=== PATIENT | female | born 1960 | race Caucasian/White ===

== ENCOUNTER → 2023-09-23 11:14 | Outpatient (CLI) | payer OTHER, MEDICAID, SELFPAY ==
[2023-09-23 12:00] LABS: Add Manual Diff / Slide Review NO; Basophils Absolute Auto 100 /uL (0-100); Basophils Percent Auto 0.8 % (0-2); Eosinophils Absolute Auto 200 /uL (0-450); Hematocrit 40.8 % (36-46); Hemoglobin 14.1 g/dL (12.0-16.0); Lymphocytes Absolute Auto 2000 /uL (1100-4500); Lymphocytes Percent Auto 28.6 % (25-40); Mean Corpuscular HGB Conc 34.6 % (30-36); Mean Corpuscular Hemoglobin 31.1 PG (26-34); Mean Corpuscular Volume 89.8 fL (80-100); Monocytes Absolute Auto 600 /uL (0-900); Monocytes Percent Auto 8.1 % (3-14); Neutrophils Absolute Auto 4200 /uL (1500-7000); Neutrophils Percent Auto 59.5 % (50-75); Platelet Count 327 X10^3/uL (150-400); Red Blood Cell Count 4.54 X10^6/uL (4.0-5.2); Red Cell Distribution Width 13.2 % (11.6-14.8)
[2023-09-23 12:24] LABS: Alanine Aminotransferase 13 IU/L (<35); Albumin 4.3 g/dL (3.5-5.0); Albumin Globulin Ratio 1.5 (1.0-2.8); Alkaline Phosphatase 65 U/L (38-126); Aspartate Aminotransferase 20 IU/L (14-36); BUN Creatinine Ratio 20.5 (6-22); Bilirubin Total 0.6 mg/dL (0.2-1.3); Blood Urea Nitrogen 18 mg/dL (7-17); Calcium 9.4 mg/dL (8.4-10.2); Carbon Dioxide 26 mmol/L (22-32); Chloride 108 mmol/L (98-107); Cholesterol 249 mg/dL (140-199); Estimated Glomerular Filt Rate > 60 mL/min (>60); Globulin 2.8 g/dL (1.7-4.1); Glucose 110 mg/dL (80-110); HDL Cholesterol 49 mg/dL (40-60); HEMOLYSIS < 15 (0-50); LDL Cholesterol Calculated 160 mg/dL (<100); Potassium 4.2 mmol/L (3.4-5.1); Sodium 139 mmol/L (137-145); Total Protein 7.1 g/dL (6.3-8.2); Triglycerides 200 mg/dL (35-150)
[2023-09-23 12:53] LABS: TSH w/ Reflex to FT4 1.54 uIU/mL (0.47-4.68)
[2023-09-23 12:54] LABS: Ferritin 34 ng/mL (11-264)
[2023-09-23 13:26] LABS: Folate 11.7 ng/mL (2.76-20.0); Vitamin B12 481 pg/mL (239-931)
[2023-09-23 14:09] LABS: Percent Iron Saturation 34 % (15-50)
== END ==
PROVIDERS: PCP Nurse Practitioner Family; Referring Provider Nurse Practitioner Family; Visit Provider Nurse Practitioner Family
DX: D64.9 Anemia, unspecified (principal); F41.8 Other specified anxiety disorders; Z13.1 Encounter for screening for diabetes mellitus; Z13.220 Encounter for screening for lipoid disorders
CPT/HCPCS: 36415; 80053; 80061; 82607; 82728; 82746; 84443; 85025

== ENCOUNTER → 2023-10-26 13:18 | Outpatient (CLI) | payer OTHER, MEDICAID, SELFPAY ==
--- NOTE | 2023-10-26 13:20 | DI.CT.S_ITS ---
PROCEDURE: CT LUNG LOW DOSE SCREENING INDICATIONS: BASELINE SCREENING/LUNG CANCER SCREENING TECHNIQUE: Noncontrast 2.0-2.5 mm thick sections acquired from the pulmonary apices to the posterior costophrenic angles. 7 mm thick axial MIP, and 5 mm coronal and sagittal reformats were then acquired. For radiation dose reduction, the following was used: automated exposure control, adjustment of mA and/or kV according to patient size. COMPARISON: None. FINDINGS: Image quality: Diagnostic. Lower Neck: No enlarged lymph nodes. Thyroid: No thyroid nodules which require sonographic follow up, per consensus guidelines. Axillae: No enlarged lymph nodes. Chest Wall: Unremarkable. Bones: Visualized osseous structures appear intact without acute fracture or focal destructive lesion. No acute compression fractures of the imaged spine. Lungs and Pleura: No pneumothorax or pleural effusions. No acute consolidation identified. There is a 4 mm posterior right lower lobe nodule seen on image 152/series 3. No other suspicious pulmonary nodules identified. Heart: Heart size is normal. No pericardial effusion. Coronary atherosclerotic vascular calcifications are noted. Thoracic Vessels: The aorta and pulmonary arteries demonstrate normal size. Mediastinum and Marissa: No enlarged lymph nodes. Esophagus: No wall thickening. No hiatal hernia. Upper Abdomen: Visualized upper abdomen solid organs and bowel loops appear normal. IMPRESSION: There is a 4 mm right lower lobe pulmonary nodule. LUNG-RADS 2; continued annual screening, if eligible. Clinically Significant Non-pulmonary Findings: Atherosclerosis. Dictated by: Remberto Mason M.D. on 10/26/2023 at 16:50 Approved by: Remberto Mason M.D. on 10/26/2023 at 16:55
--- NOTE | 2023-10-26 13:20 | DI.MG.S_ITS ---
BILATERAL DIGITAL SCREENING MAMMOGRAM 3D/2D WITH CAD: 10/26/2023 CLINICAL: Baseline exam. Routine screening. No prior exams were available for comparison. There are scattered areas of fibroglandular density in both breasts (category b / 25%-50% glandular tissue). Current study was also evaluated with a Computer Aided Detection (CAD) system. No significant masses, calcifications, or other findings are seen in either breast. IMPRESSION: NEGATIVE There is no mammographic evidence of malignancy. A 1 year screening mammogram is recommended. Based on the Tyrer Cuzick model (a risk assessment model) the patient's lifetime risk is 5.3% and her 10 year risk is 2.3%. According to the ACR, ACS, and NCCN guidelines, an annual breast MRI exam along with mammogram is recommended if the patient's lifetime risk is 20% or greater. This exam was interpreted at Station ID: [id number]. NOTE: For mammograms, a report in lay terms will be sent to the patient. Approximately 15% of breast malignancies will not be visualized mammographically. In the management of a palpable breast mass, a negative mammogram must not discourage biopsy of a clinically suspicious lesion. Electronically Signed By: Victorino rivero/tyron:10/26/2023 15:57:23 letter sent: Normal Exam ACR BI-RADS Category 1: Negative 3341F
== END ==
PROVIDERS: PCP Nurse Practitioner Family; Referring Provider Nurse Practitioner Family; Visit Provider Nurse Practitioner Family
DX: Z12.31 Encounter for screening mammogram for malignant neoplasm of breast (principal); F17.200 Nicotine dependence, unspecified, uncomplicated; R91.1 Solitary pulmonary nodule
CPT/HCPCS: 71271; 77063; 77067

== ENCOUNTER → 2023-11-07 11:20 | Outpatient (CLI) | payer OTHER, MEDICAID, SELFPAY | LOC: RESP 11:21 | PROVIDERS: PCP Nurse Practitioner Family; Referring Provider Nurse Practitioner Family; Visit Provider Nurse Practitioner Family | DX: J44.9 Chronic obstructive pulmonary disease, unspecified (principal); F17.210 Nicotine dependence, cigarettes, uncomplicated | CPT/HCPCS: 94060; 94726; 94729 ==

== ENCOUNTER 2024-08-12 10:27 | Emergency (ER) | payer OTHER, SELFPAY ==
[2024-08-12 10:42] VITALS: BP 170/96; PULSE 79; RESP 16; TEMP 36.6; O2SAT 95; BMI 23.8
--- NOTE | 2024-08-12 11:45 | ED.HA ---
HPI - Headache General Chief Complaint: Headache Stated Complaint: Migraine, Swollen Eye, V/D, Weakness Time Seen by Provider: 08/12/24 11:35 Mode of arrival: Ambulatory History of Present Illness HPI Narrative: 64-year-old female history of COPD here with bitemporal headache that started a few days ago, woke up yesterday with swollen left eye and painful left eye with clear drainage, reports of neck stiffness and nausea vomiting and diarrhea that started yesterday. No known fever. Denies any severe headache or visual disturbance, speech disturbance. No recent infectious symptoms such as sinusitis or cough/congestion that is new. No known history of glaucoma Related Data Home Medications ?Medication ?Instructions ?Recorded ?Confirmed fluoxetine 20 mg tablet 20 mg PO DAILY 06/20/24 06/20/24 Previous Rx's ?Medication ?Instructions ?Recorded loratadine 10 mg tablet (Claritin) 10 mg PO DAILY #30 tabs 06/20/24 Allergies Allergy/AdvReac Type Severity Reaction Status Date / Time codeine AdvReac Mild Bradycardia Verified 08/12/24 10:42 Penicillins AdvReac Mild Vomiting Verified 08/12/24 10:42 Review of Systems Review of Systems Narrative: Pertinent ROS obtained and negative except as stated in HPI Patient History Social History Smoking Status: Current every day smoker Smoking Status: Current every day smoker Exam Initial Vital Signs Initial Vital Signs: Vital Signs Temperature 97.9 F 08/12/24 10:42 Pulse Rate 79 08/12/24 10:42 Respiratory Rate 16 08/12/24 10:42 Blood Pressure 170/96 H 08/12/24 10:42 Pulse Oximetry 95 08/12/24 10:42 Oxygen Delivery Method Room Air 08/12/24 10:42 Constitutional: 64-year-old female resting in the bed, no acute distress Head: NCAT. There is mild swelling of the left periorbital tissue. No induration. No drainage from the eye. Pupil equal round reactive to light Cardiovascular: RRR, no murmur or rub Pulmonary: Faint expiratory wheeze, no respiratory distress Abdominal: soft, non-tender Extremities: No LE edema Skin: warm and dry, no diaphoresis Neurological: Alert and oriented x3. No nuchal rigidity. Extraocular movements intact. Follows commands. Normal EOM. No visual loss. No facial palsy. Equal 5/5 strength UE and LEs. No limb ataxia. Normal sensation. Normal speech. No dysarthria. No truncal ataxia. Normal coordination. No nystagmus noted. Course Orders Ordered: Discontinued Medications Diphenhydramine HCl (Diphenhydramine 50 Mg/Ml Vial) 50 mg IV NOW ONE Stop: 08/12/24 11:51 Last Admin: 08/12/24 12:09 Dose: 50 mg Documented By: SLOANE Fluorescein Sodium (Fluorescein 1 Mg Strip) 1 mg EYE-LEFT NOW ONE Stop: 08/12/24 11:51 Last Admin: 08/12/24 12:11 Dose: 1 mg Documented By: SLOANE Sodium Chloride (Normal Saline 0.9%) 1,000 mls @ 1,000 mls/hr IV BOLUS ONE Stop: 08/12/24 13:04 Last Infusion: 08/12/24 12:49 Dose: Infused Documented By: Admin: 08/12/24 12:10 Dose: 1,000 mls/hr Documented By: SLOANE Ketorolac Tromethamine (Ketorolac 30 Mg/Ml Vial) 15 mg IV NOW ONE Stop: 08/12/24 11:51 Last Admin: 08/12/24 12:09 Dose: 15 mg Documented By: SLOANE Prochlorperazine (Prochlorperazine 10 Mg/2 Ml Vial) 10 mg IV NOW ONE Stop: 08/12/24 11:51 Last Admin: 08/12/24 12:09 Dose: 10 mg Documented By: SLOANE Proparacaine HCl (Proparacaine 0.5% Ophth Lindsay) 1 drops EYE-LEFT NOW ONE Stop: 08/12/24 11:51 Last Admin: 08/12/24 12:11 Dose: 1 drop Documented By: SLOANE Vital Signs Vital signs: Vital Signs - 8 hr 08/12/24 10:42 Temperature 97.9 F Pulse Rate 79 Respiratory Rate 16 Blood Pressure 170/96 H Pulse Oximetry 95 Oxygen Delivery Method Room Air MDM - Headache Lab Data 08/12/24 10:45 08/12/24 10:45 Labs: Lab Results 08/12/24 Range/Units 10:45 WBC 8.4 (4.5-11.0) X10^3/uL RBC 4.77 (4.0-5.2) X10^6/uL Hgb 14.9 (12.0-16.0) g/dL Hct 43.4 (36-46) % MCV 90.9 (80-100) fL MCH 31.2 (26-34) PG MCHC 34.3 (30-36) % RDW 13.6 (11.6-14.8) % Plt Count 359 (150-400) X10^3/uL Neut % (Auto) 52.7 (50-75) % Lymph % (Auto) 35.6 (25-40) % Archer % (Auto) 9.0 (3-14) % Eos % (Auto) 1.8 L (2-4) % Baso % (Auto) 0.9 (0-2) % Neut # (Auto) 4400 (5980-0217) /uL Lymph # (Auto) 3000 (0900-6195) /uL Archer # (Auto) 800 (0-900) /uL Eos # (Auto) 100 (0-450) /uL Baso # (Auto) 100 (0-100) /uL ESR 12 (0-20) MM/HR Sodium 140 (137-145) mmol/L Potassium 4.0 (3.4-5.1) mmol/L Chloride 104 (98-107) mmol/L Carbon Dioxide 27 (22-32) mmol/L BUN 11 (7-17) mg/dL Creatinine 0.77 (0.52-1.04) mg/dL Estimated GFR > 60 (>60) mL/min BUN/Creatinine Ratio 14.3 (6-22) Glucose 114 H (70-99) mg/dL Calcium 9.5 (8.4-10.2) mg/dL Total Bilirubin 1.1 (0.2-1.3) mg/dL AST 68 H (14-36) IU/L ALT 17 (<35) IU/L Alkaline Phosphatase 69 (38-126) U/L C-Reactive Protein < 0.5 (<1.0) mg/dL Total Protein 8.0 (6.3-8.2) g/dL Albumin 4.6 (3.5-5.0) g/dL Globulin 3.4 (1.7-4.1) g/dL Albumin/Globulin Ratio 1.4 (1.0-2.8) MDM Narrative Medical decision making narrative: In brief, this is a 64-year-old female with COPD who presents with bitemporal headache, left eye pain and swelling/clear drainage, neck stiffness, vomiting and diarrhea On arrival to the emergency department, the patient is in no acute distress. She is noted to be hypertensive with otherwise normal vital signs Exam is pertinent for: Nonfocal neurologic exam. She has mild left periorbital edema without induration or significant erythema. Plan to complete fluorescein eye exam Differential diagnoses considered but not limited to: Giant cell arteritis, benign headache type, viral syndrome, acute glaucoma, corneal abrasion, uveitis, glaucoma, viral meningitis. Doubt CVT or TIA/stroke clinically. There is some drooping of the left eyelid although I think is related to edema. There is no facial asymmetry or weakness of the muscles of the face Initial treatment plan includes: Laboratories, viral PCR, we will offer migraine cocktail. Will peform fluorescein exam of eye, check IOP with tonopen. May consider lumbar puncture if laboratories are concerning, or pain is intractable, etc. Notified by staff patient requesting to leave after migraine cocktail. When I go to reassess the patient she is sitting up in bed, requesting to leave. I inquired whether she was feeling restless or anxious after Compazine and she said yes. I informed her of probable akathisia reaction and offered medications to help with symptoms while we wait for her laboratories. She declines, ?I just want to go home. ? I let her know that she can return at any time if she would like to be re-evaluated. Patient leaves the emergency department against medical advice. Discharge Plan Departure Patient Disposition: Left Against Medical Advice Clinical Impression: Left against medical advice, Headache Prescriptions: No Action fluoxetine 20 mg tablet 20 mg PO DAILY loratadine [Claritin] 10 mg tablet 10 mg PO DAILY Qty: 30 0RF Referrals: Miscellaneous,Doctor, [Primary Care Provider, Medical] Stand Alone Forms: Patient Portal/API, Against Med. Advice (Vietnamese)
[2024-08-12 12:01] LABS: Add Manual Diff / Slide Review NO; Basophils Absolute Auto 100 /uL (0-100); Basophils Percent Auto 0.9 % (0-2); Eosinophils Absolute Auto 100 /uL (0-450); Eosinophils Percent Auto 1.8 % (2-4); Hematocrit 43.4 % (36-46); Hemoglobin 14.9 g/dL (12.0-16.0); Lymphocytes Absolute Auto 3000 /uL (1100-4500); Lymphocytes Percent Auto 35.6 % (25-40); Mean Corpuscular HGB Conc 34.3 % (30-36); Mean Corpuscular Hemoglobin 31.2 PG (26-34); Mean Corpuscular Volume 90.9 fL (80-100); Monocytes Absolute Auto 800 /uL (0-900); Neutrophils Absolute Auto 4400 /uL (1500-7000); Neutrophils Percent Auto 52.7 % (50-75); Platelet Count 359 X10^3/uL (150-400); Red Blood Cell Count 4.77 X10^6/uL (4.0-5.2); Red Cell Distribution Width 13.6 % (11.6-14.8); White Blood Cell Count 8.4 X10^3/uL (4.5-11.0)
[2024-08-12] MEDS: diphenhydrAMINE 50 MG/ML VIAL IV (12:09)
[2024-08-12] MEDS: KETOROLAC 30 MG/ML VIAL 15 MG IV (12:09)
[2024-08-12] MEDS: PROCHLORPERAZINE 10 MG/2 ML VIAL IV (12:09)
[2024-08-12] MEDS: SODIUM CHLORIDE 0.9% 1,000 ML 1000 ML IV (12:10)
[2024-08-12] MEDS: PROPARACAINE 0.5% OPHTH SOL 1 DROPS EYE-LEFT (12:11)
[2024-08-12] MEDS: FLUORESCEIN 1 MG STRIP EYE-LEFT (12:11)
[2024-08-12 12:12] LABS: Alanine Aminotransferase 17 IU/L (<35); Albumin 4.6 g/dL (3.5-5.0); Albumin Globulin Ratio 1.4 (1.0-2.8); Alkaline Phosphatase 69 U/L (38-126); Aspartate Aminotransferase 68 IU/L (14-36); BUN Creatinine Ratio 14.3 (6-22); Bilirubin Total 1.1 mg/dL (0.2-1.3); Blood Urea Nitrogen 11 mg/dL (7-17); C-Reactive Protein Quant < 0.5 mg/dL (<1.0); Calcium 9.5 mg/dL (8.4-10.2); Carbon Dioxide 27 mmol/L (22-32); Chloride 104 mmol/L (98-107); Estimated Glomerular Filt Rate > 60 mL/min (>60); Globulin 3.4 g/dL (1.7-4.1); Glucose 114 mg/dL (70-99); HEMOLYSIS 37 (0-50); Sodium 140 mmol/L (137-145)
[2024-08-12 12:22] LABS: Erythrocyte Sedimentation Rate 12 MM/HR (0-20)
== END 2024-08-12 12:48 | disposition left against medical advice (07) ==
PROVIDERS: Emergency Provider Student in an Organized Health Care Education/Training Program
DX: R51.9 Headache, unspecified (principal); H57.12 Ocular pain, left eye; M54.2 Cervicalgia; R11.2 Nausea with vomiting, unspecified; R19.7 Diarrhea, unspecified; Z53.29 Procedure and treatment not carried out because of patient's decision for other reasons
CPT/HCPCS: 80053; 85025; 85651; 86140; 96361; 96374; 96375; 99283; 99284; J0780; J1200; J1885

== ENCOUNTER 2025-02-05 07:42 | Emergency (ER) | payer OTHER, SELFPAY ==
[2025-02-05 07:58] VITALS: BP 130/77; PULSE 86; RESP 16; TEMP 36.6; O2SAT 97; BMI 23.8
--- NOTE | 2025-02-05 08:24 | ED_ITS ---
HPI - Neck Pain/Injury General Chief Complaint: Neck Pain/Injury Stated Complaint: Neck pain 1 day Time Seen by Provider: 02/05/25 07:57 Mode of arrival: Family Vehicle History of Present Illness HPI Narrative: Patient here for left-sided neck pain starting yesterday. No known injury. No previous history of neck surgery. No numbness tingling or weakness to the face arms or hand. No chest pain. 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 Related Data Home Medications ?Medication ?Instructions ?Recorded ?Confirmed fluoxetine 20 mg tablet 20 mg PO DAILY 06/20/2404/24 Previous Rx's ?Medication ?Instructions ?Recorded loratadine 10 mg tablet (Claritin) 10 mg PO DAILY #30 tabs 06/20/24 fluoxetine 20 mg capsule 20 mg PO DAILY #30 caps 04/24 ibuprofen 600 mg tablet 600 mg PO Q6H PRN pain #30 t abs 10/30/24 baclofen 20 mg tablet 20 mg PO TID PRN pain (scale score 02/05/25 4-6) #20 tabs lidocaine 5 % topical patch 1 patch topical DAILY #15 ea 02/05/25 Allergies Allergy/AdvReac Type Severity Reaction Status Date / Time codeine AdvReac Mild Bradycardia Verified 02/05/25 07:59 Penicillins AdvReac Mild Vomiting Verified 02/05/25 07:59 Review of Systems Review of Systems Narrative: GENERAL: Negative chills, fatigue, malaise, fever, sweats. HEENT: Negative sinus pain, ear pain, sore throat RESPIRATORY: Negative dyspnea, cough CARDIOVASCULAR: Negative chest pain, palpitations GASTROINTESTINAL: Negative vomiting, nausea, abdominal pain : Negative dysuria, frequency, hematuria MUSCULOSKELETAL: Positive neck/muscle negative bony pain SKIN: Negative rash, skin lesions NEUROLOGIC: Negative weakness, numbness ROS Unobtainable: All systems reviewed & are unremarkable except as noted in HPI and below Patient History Social History Smoking Status: Current every day smoker Smoking Status: Current every day smoker tobacco type: cigarettes Exam Narrative Exam Narrative: GENERAL: in no distress, not toxic not dyspneic HEAD: Normocephalic. EYES: Pupils equal round ENT: Mucous membranes moist. NECK: Trachea midline. There is left lower paracervical muscle tenderness and spasm. Increased pain with rotating head to the left. No pain routine to the right. Some pain with flexion-extension. No midline tenderness step-off of the cervical spine. No rash. BACK: No flank tenderness. EXTREMITIES: No gross deformities. NEURO: AOx4. Clear speech, no facial droop, light touch intact bilateral face and hands and strong equal [employer]. SKIN: Warm and dry PSYCH: Not anxious, is cooperative Initial Vital Signs Initial Vital Signs: Vital Signs Temperature 97.9 F 02/05/25 07:58 Pulse Rate 86 02/05/25 07:58 Respiratory Rate 16 02/05/25 07:58 Blood Pressure 130/77 02/05/25 07:58 Pulse Oximetry 97 02/05/25 07:58 Oxygen Delivery Method Room Air 02/05/25 07:58 Course Orders Ordered: ED Orders 02/05/25 08:25 XR cervical spine 2V or 3V Stat Discontinued Medications Lidocaine (Lidocaine 5% Patch) 1 each TOP NOW ONE Stop: 02/05/25 09:25 Last Admin: 02/05/25 09:47 Dose: 1 each Vital Signs Vital signs: Vital Signs - 8 hr 02/05/25 07:58 Temperature 97.9 F Pulse Rate 86 Respiratory Rate 16 Blood Pressure 130/77 Pulse Oximetry 97 Oxygen Delivery Method Room Air MDM - Neck Pain/Injury Imaging Data X-ray cervical spine: Radiologist's Impression: [place] [address] XRay Report Signed Patient: Danuta Samaniego MR#: [id number] : 1960 Acct:[id number] Age/Sex: 64 / F Date of Service: 02/05/25 Loc: ED Accession Number: [id number] Procedure: XR cervical spine 2V or 3V Ordering Provider: Andrés Barnes MD PROCEDURE: XR CERVICAL SPINE 2V OR 3V INDICATIONS: Left-sided neck pain TECHNIQUE: 3 view(s) of the cervical spine were acquired. COMPARISON: None. FINDINGS: Bones: No fractures or dislocations to the T1 level. The lateral masses of C1 appear intact on the odontoid view. No suspicious bony lesions. Mild to moderate multilevel disc height loss, endplate sclerosis and spurring. Mild to moderate multilevel cervical spine facet arthropathy and uncovertebral hypertrophy. Soft tissues: No prevertebral soft tissue swelling. IMPRESSION: No acute displaced fracture or traumatic subluxation. Mild to moderate degenerative changes. Approved by: Aurelia Ramirez M.D.,Ph.D. on 02/05/2025 at 9:08 [facility] Narrative Medical decision making narrative: Patient here for left-sided neck pain starting yesterday. No known injury. No previous history of neck surgery. No numbness tingling or weakness to the face arms or hand. No chest pain. 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 MDM After history and exam, x-ray cervical spine Differential considered: Includes but not limited to cervical strain cervical radiculopathy degenerative disc disease Medical records reviewed: No recent visit for this complaint Imaging studies independently reviewed: X-ray cervical spine no acute finding. There is degenerative disc disease Consultations: None indicated at this time Re-evaluations: 9:28 a.m.. Updated patient results. Exam and x-ray reassuring. Likely degenerative disc disease cervical radiculopathy. Primary care referral provided. Will need outpatient MRI and physical therapy. Work note provided. Baclofen and lidocaine patch provided. She agrees with treatment plan. She desires discharge home. Discussion: Appropriate for discharge home. No neuro deficits. No MRI indicated this time. Return precautions reviewed. She desires discharge home Diagnosis: Cervical degenerative disc disease radiculopathy Discharge Plan Departure Patient Disposition: Home Clinical Impression: Cervical radiculopathy, Disc disorder of cervical region Instructions: DI for Neck Pain Activity Restrictions/Additional Instructions: Your exam and x-ray imaging are reassuring. You do have degenerative disc disease of the neck that may be causing your pain. Prescriptions have been sent to your pharmacy to continue. Work note has been provided for you. Please call provided primary care provider phone number to obtain family doctor, . Work note has been provided for you. Return if worse if any questions or concerns. You will need outpatient MRI of your neck and possible physical therapy referral. Prescriptions: New baclofen 20 mg tablet 20 mg PO TID PRN (Reason: pain (scale score 4-6)) Qty: 20 0RF lidocaine 5 % adhesive patch,medicated 1 patch topical DAILY Qty: 15 0RF Rx Instructions: leave on most painful area for up to 12 hrs No Action ibuprofen 600 mg tablet 600 mg PO Q6H PRN (Reason: pain) Qty: 30 0RF fluoxetine 20 mg capsule 20 mg PO DAILY Qty: 30 0RF fluoxetine 20 mg tablet 20 mg PO DAILY loratadine [Claritin] 10 mg tablet 10 mg PO DAILY Qty: 30 0RF Stand Alone Forms: Patient Portal/API, Work Release Note
[2025-02-05] MEDS: LIDOCAINE 5% PATCH 1 EACH TOP (09:47)
== END 2025-02-05 09:51 | disposition home or self-care (01) ==
PROVIDERS: Emergency Provider Emergency Medicine
DX: M54.12 Radiculopathy, cervical region (principal)
CPT/HCPCS: 72040; 99282; 99283